=== PATIENT | male | born 1995 | race Caucasian/White ===

== ENCOUNTER 2022-01-23 14:15 | Outpatient (CLI) | payer BC, SELFPAY ==
--- NOTE | ~2022-01-23 | XR_ITS ---
EXAMINATION: XR chest 2V Exam Date/Time: 01/23/2022 14:20 CDT CLINICAL HISTORY: R07.9 - Chest pain, unspecified X 2 WKS ANXIETY NAUSEA Comparison: None available. RESULT: Lines, tubes, and devices: None. Lungs and pleura: Clear. Cardiomediastinal silhouette: Stable cardiomediastinal silhouette. Other: No acute osseous or upper abdominal finding. IMPRESSION: Normal chest radiograph findings. Reviewed, dictated and finalized at location K.
== END 2022-01-23 14:16 | disposition home or self-care (01) ==
LOC: ANHIMG 14:18
PROVIDERS: PCP Family Medicine; Visit Provider Physician Assistant
DX: R07.89 Other chest pain (principal); R00.2 Palpitations
CPT/HCPCS: 71046

== ENCOUNTER 2024-03-30 13:58 | Outpatient (CLI) | payer BC, SELFPAY ==
--- NOTE | ~2024-03-30 | US_ITS ---
EXAMINATION: US scrotum doppler DATE: 03/30/2024 14:52 INDICATION: Right scrotal pain. TECHNIQUE: Grayscale and Doppler ultrasound images of the testes were obtained. COMPARISON: None. FINDINGS: The right testis measures 2.9 x 3.6 x 1.9 cm. The left testis measures 2.9 x 3.4 x 2.2 cm. There is normal vascular flow to both testes. The right epididymis is normal with normal vascular gaye w. The left epididymis is normal with normal vascular flow. There is no varicocele or hydrocele. IMPRESSION: 1. Normal testes. Reviewed, dictated and finalized at location E. IMPRESSION: 1. Normal testes.
== END 2024-03-30 13:59 ==
LOC: GOSHIMG 13:59
PROVIDERS: PCP Family Medicine; Visit Provider Physician Assistant Medical
DX: N50.82 Scrotal pain (principal)
CPT/HCPCS: 76870; 93976